=== PATIENT | male | born 1945 | race Caucasian/White ===

== ENCOUNTER 2021-01-01 08:51 | Observation (INO) ==
[~2021-01-01 08:51] MED LIST: Buffered Lidocaine 1% SYRIN 1 ml INTRADERM ONE; Lactated Ringers 1000 ml BAG 1,000 ML IV SCH
[2021-01-01] MEDS ORDERED: cefTRIAXone 2 GM ADDV.VIAL ONE (09:36)
[2021-01-01] MEDS ORDERED: fentaNYL 100 mcg/2 ml 50 MCG/ML VIAL ONE (09:50)
[2021-01-01] MEDS ORDERED: Propofol 10 MG/ML 20 ML BTL ONE ×4 (09:52→11:59)
[2021-01-01] MEDS ORDERED: Lidocaine 1% VIAL 10 MG/ML VIAL ONE (11:07)
[2021-01-01 11:11] LABS: Hematocrit 43 % (42-52); Hemoglobin 15.1 g/dL (14.0-18.0); Mean Corpuscular HGB Conc 35 g/dL (31-36); Mean Corpuscular Hemoglobin 33 pg (27-31); Mean Corpuscular Volume 96 fL (80-94); Mean Platelet Volume 7.6 fL (7.4-10.4); Platelet Count 169 10^3/uL (150-450); Red Blood Count 4.51 10^6 /uL (4.18-5.48); Red Cell Distribution Width 13 % (10-15); White Blood Count 4.7 10^3/uL (3.5-10.8)
[2021-01-01 11:27] LABS: BUN/Creatinine Ratio 11.9 (8-20); Calcium 8.4 mg/dL (8.6-10.3); EGFR African American 108.1 (>60); EGFR Non-African American 89.3 (>60)
[2021-01-01] MEDS ORDERED: Ondansetron 4 mg VIAL 2 MG/ML 2 ml VIAL ONE (11:31)
[2021-01-01] MEDS ORDERED: diPHENhydraMINE IV 50 MG/ML 1 ml VIAL (BENADRYL) IV PRN (11:33)
[2021-01-01] MEDS ORDERED: Naloxone 0.4 mg VIAL 0.4 mg/ml 1 ml VIAL IV PRN (11:33)
[2021-01-01] MEDS ORDERED: fentaNYL 100 mcg/2 ml 50 MCG/ML VIAL IV PRN (11:33)
[2021-01-01] MEDS ORDERED: Furosemide 20 mg/2 ml IV VIAL ONE (11:37)
[2021-01-01] MEDS ORDERED: Phenylephrine 40 mcg/mL 10mL (400mcg) SYRINGE ONE (12:23)
[2021-01-01] MEDS: Lactated Ringers 1000 ml BAG 1,000 ML IV SCH ×2 (14:15→21:35)
[2021-01-01] MEDS ORDERED: LUTEIN 20 MG PO SCH (18:00)
[2021-01-01] MEDS: MULTIVITAMIN PO SCH (20:16)
[2021-01-01] MEDS: [UNRECOGNIZED DRUG - OTHER] PO SCH (20:16)
[2021-01-01] MEDS ORDERED: Doxepin 10 mg CAP (NF) PO SCH (21:00)
[2021-01-02] MEDS: Lactated Ringers 1000 ml BAG 1,000 ML IV SCH (06:36)
[2021-01-02 07:32] VITALS: BP 150/76
[2021-01-02] MEDS ORDERED: Cholecalciferol (VIT D3) 1,000 unit TAB PO SCH ×2 (09:00)
[2021-01-02] MEDS ORDERED: CMC:OMEGA-3 FATTY ACID 1000 mg(NF) PO SCH (09:00)
[2021-01-02] MEDS: [UNRECOGNIZED DRUG - OTHER] PO SCH (09:28)
[2021-01-02] MEDS: MULTIVITAMIN PO SCH (09:28)
== END 2021-01-02 10:45 | disposition home or self-care (01) ==
LOC: OR 08:51 → SSU 08:51
PROVIDERS: ADMIT Urology; ATTEND Urology